=== PATIENT | male | born 1965 | race American Indian/Alaskan Native ===

== ENCOUNTER 2020-06-17 10:45 | Day surgery (SDC) | payer OTHER ==
[~2020-06-17 10:45] MED LIST: CELECOXIB 200 MG CAP PO NR; GABAPENTIN 300 MG CAP PO NR; LACTATED RINGERS 1,000 ML IV SCH; MAGNESIUM OXIDE 400 MG TAB PO SCH; MIDAZOLAM 2 MG/2 ML INJ IV NR
[2020-06-17 11:46] VITALS: BP 195/125
[2020-06-17] MEDS ORDERED: ceFAZolin/STERILE WATER 2 GM/20 ML SYRINGE IV NR (12:00)
--- NOTE | 2020-06-17 12:31 | Event Note ---
Date: 06/17/20 Mr. Ta presented to preop holding area for scheduled elective hernia repair. Initial vitals revealed significant hypertension 190s/120s with no significant difference on recheck. Mr. Ta reported a diagnosis of HTN 2 yrs ago for which he started taking antihypertensives but stopped after 1 month. He last saw a physician earlier this year and again antihypertensives were recommended but he did not start them and has not followed up. He denies chest pain, SOB, or headache. He has no signs of HF decompensation on exam. I discussed with the patient my concerns for longstanding, poorly controlled HTN in the perioperative period, including increased risk for HD instability, CVA and MT. I also discussed the risks to his overall health due to poorly controlled HTN. Patient was treated with labetalol IV x1 dose with improvement to 170s/100s. He remained asymptomatic. Case was cancelled pending optimization of blood pressure and medical clearance by PCP. Patient verbalized understanding. Surgeon made aware. D/c'd to home in no distress.
== END 2020-06-17 10:46 | disposition home or self-care (01) ==
LOC: OR 10:45
PROVIDERS: ATTEND Urology
DX: K40.90 Unilateral inguinal hernia, without obstruction or gangrene, not specified as recurrent (principal); Z53.8 Procedure and treatment not carried out for other reasons; I10 Essential (primary) hypertension; J45.909 Unspecified asthma, uncomplicated; Z98.890 Other specified postprocedural states
CPT/HCPCS: J7120